=== PATIENT | female | born 1970 | race Caucasian/White ===

== ENCOUNTER → 2017-09-25 | Day surgery (SDC) | payer OTHER, BC ==
[2017-09-25 17:37] VITALS: BP 139/86
--- NOTE | 2017-09-26 11:43 | OR ---
DATE OF OPERATION: 09/26/2017 PREOPERATIVE DIAGNOSIS: VENOUS INSUFFICIENCY WITH PAINFUL VARICOSE VEINS. POSTOPERATIVE DIAGNOSIS: VENOUS INSUFFICIENCY WITH PAINFUL VARICOSE VEINS. SURGEON: Triston Munoz MD PROCEDURE: BILATERAL EVH, GSV'S. ANESTHESIA: Local with tumescent. COMPLICATIONS: None. SPECIMEN: None. FINDINGS: Successful TIARA of bilateral GSV's. INDICATIONS: The patient has documented reflux at the saphenofemoral junction and symptomatic varicose veins. She elects to proceed with endovenous ablation. DESCRIPTION OF PROCEDURE: The patient was brought to the operating room site and the insufficient saphenous veins on both lower extremities were mapped via ultrasound and diagrammed on the overlying skin along with the access site around the calf on each side. Both limbs were prepped and draped in sterile fashion. The patient was placed in reverse Trendelenburg position and local anesthesia was instilled over the access site in the right lower leg. The vein was accessed using Seldinger technique and ultrasound guidance with a guidewire introduced through the needle. The needle was removed. A small incision was made with an 11 blade scalpel and then a 6-Greek sheath was slid over the guidewire and secured in place by skin tension. Guidewire was removed. The sheath was flushed and radiofrequency probe was placed into the vein through the sheath and positioned approximately 2.3 cm distal to the saphenofemoral junction under ultrasound guidance. After probe position verified, tumescent anesthesia was infiltrated under ultrasound guidance precisely into the perivenous compartment along the length of the vein from the entry site to the junction until a halo affect was achieved. The patient was placed back in Trendelenburg position to exsanguinate the superficial system and radiofrequency probe position again confirmed via ultrasound and with direct external compression along the length of the heating element, radiofrequency energy was applied. The vein was ablated by heating a 7 cm segment and indexing the catheter forward 6.5 cm until treatment length complete. Device temperature was maintained at 120 degrees Celsius with an initial power level of 40 perea, dropping to below 20 for each treatment. Total treatment time was 2 minutes and 40 seconds with 8 radiofrequency cycles. A total of 500 mL of tumescent was used. The catheter and sheath were withdrawn and a pressure dressing was applied with good hemostasis. Left lower leg was then isolated in similar fashion. The vein was accessed and sheath applied using the same Seldinger technique without complication. The radiofrequency probe was placed into the vein through the sheath and positioned approximately 2.1 cm distal to the saphenofemoral junction on the left leg. Once position was verified via ultrasound, tumescent anesthesia was also infiltrated into that leg using ultrasound guidance in the perivenous compartment achieving a nice halo effect around the access site to the level of the saphenofemoral junction. The patient was again placed in Trendelenburg position to exsanguinate the superficial system. The radiofrequency probe position was confirmed with direct external compression along the length of the heating element. Radiofrequency energy was applied and the left greater saphenous vein was ablated, heating a 7 cm segment, indexing the catheter forward 6.5 cm until treatment length complete. Device temperature was kept at 120 degrees Celsius with an initial power level of 40 perea, dropping to below 20 for each treatment segment. Total treatment time was 2 minutes and 30 seconds with 8 radiofrequency cycles. Total of 500 mL of tumescent was used in the left leg. Catheter and sheath withdrawn, ultrasound confirmed excellent and successful treatment of both veins with wonderful flow in the deep system. Both legs were wrapped in compression wrapping from the level of the foot to the groin and the patient was stable in the recovery room. FRANSISCA/CHELITA /[id number]
== END ==
LOC: CC.SDS 14:24
PROVIDERS: ATTEND Family Medicine
DX: I87.2 Venous insufficiency (chronic) (peripheral) (principal); I83.813 Varicose veins of bilateral lower extremities with pain
CPT/HCPCS: A4216